=== PATIENT | female | born 1980 | race Caucasian/White ===

== ENCOUNTER 2018-10-12 08:54 | Day surgery (SDC) | payer OTHER ==
[2018-10-12] MEDS ORDERED: LIDOCAINE 4% SOLUTION 50 ML BTL (09:52)
[2018-10-12] MEDS ORDERED: MIDAZOLAM 1 MG/ML 2 ML INJ ×3 (10:54)
[2018-10-12] MEDS ORDERED: FENTAnyl 50 MCG/ML VIAL (10:55)
== END 2018-10-12 11:14 | disposition home or self-care (01) ==
LOC: GIL 08:54
DX: R19.5 Other fecal abnormalities (principal); K64.9 Unspecified hemorrhoids; D13.1 Benign neoplasm of stomach; E03.9 Hypothyroidism, unspecified
CPT/HCPCS: 43239; 84703; 88305; 88312